=== PATIENT | male | born 1985 | race Hispanic/Latino ===

== ENCOUNTER 2021-08-27 23:21 | Emergency (ER) | payer OTHER ==
[~2021-08-27] VITALS: Ht 182.9 cm; Wt 108.9 kg
[2021-08-27 23:50] VITALS: BP 135/72
[2021-08-28] MEDS ORDERED: DIPH25 PO (00:25)
[2021-08-28] MEDS ORDERED: DIPHENHYDRAMINE HCL 25 MG CAPSULE ONE (00:30)
== END 2021-08-28 00:36 | disposition home or self-care (01) ==
LOC: EDH 23:21
DX: R21 Rash and other nonspecific skin eruption (principal)
CPT/HCPCS: 99282; Q0163